=== PATIENT | female | born 1970 | race Caucasian/White ===

== ENCOUNTER 2018-11-12 05:43 | Day surgery (SDC) | payer OTHER ==
[~2018-11-12] VITALS: Ht 160 cm; Wt 84.3 kg
[2018-11-12 06:33] VITALS: Ht 160 cm; Wt 84.3 kg
[2018-11-12] MEDS ORDERED: OMEP40CA6 PO (06:40)
[2018-11-12 07:29] VITALS: BP 105/64; PULSE 66; RESP 18
[2018-11-12] MEDS ORDERED: MIDAZOLAM 1 MG/ML 2 ML INJ ONE (08:09)
[2018-11-12] MEDS ORDERED: FENTAnyl 50 MCG/ML VIAL ONE (08:09)
[2018-11-12 08:32] VITALS: BP 103/71; RESP 20
== END 2018-11-12 10:59 | disposition home or self-care (01) ==
LOC: GIL 05:43
PROVIDERS: ATTEND Internal Medicine Gastroenterology
DX: K21.0 Gastro-esophageal reflux disease with esophagitis (principal)
CPT/HCPCS: 43239; 84703; 88305; 88312; J2250; J3010; Z7610